=== PATIENT | female | born 1970 | race Caucasian/White ===

== ENCOUNTER 2018-08-16 19:17 | Emergency (ER) | END 2018-08-17 00:14 | disposition home or self-care (01) ==

== ENCOUNTER 2019-02-09 11:21 | Emergency (ER) | payer SELFPAY ==
[~2019-02-09] VITALS: Wt 59.1 kg
[~2019-02-09 11:21] MED LIST: ACET500C5 PO; IBUP-1542 PO
[2019-02-09] MEDS ORDERED: SOD CHLORIDE 0.9% 1,000 ML IV STA (11:37)
[2019-02-09] MEDS: METOCLOPRAMIDE 10 MG INJ IV STA ×2 (12:26→12:33)
[2019-02-09] MEDS: DIPHENHYDRAMINE 50 MG INJ IV STA ×2 (12:26→12:33)
[2019-02-09] MEDS: HYDROmorphONE 1 MG/ML SYG IV STA ×2 (12:27→12:33)
[2019-02-09] MEDS: NICARDipine HCL 30 MG CAPSULE PO ONE ×2 (12:27→12:34)
--- NOTE | 2019-02-09 12:59 | ERD ---
ER Documentation Chief Complaint Chief Complaint PT BIB AMBULANCE WITH C/O WEAKNESS X4 DAYS HPI This is a 48-year-old female who says that both of her legs have been tingling for the past 4 days and then she was on the bus prior to arrival and she was supposed to get off it her stop but she was unable to stand and walk at that time. She was brought in by ambulance for this reason. She states she had a headache for the past 4 days as well in the frontal region but now is getting better she states. She has no weakness in her arms but now she says her arms are tingling bilaterally but more specifically her hands bilaterally. She says her chin is also tingling. She has no weakness in the face. She says she had the exact same symptoms happened 5 months ago but she did not seek any medical attention. Patient is a bit tangential when trying to get a history from her. ROS All systems reviewed and are negative except as per history of present illness. Medications Home Meds Active Scripts Acetaminophen* (Tylophen*) 500 Mg Capsule, 1 CAP PO Q6H PRN for PAIN AND OR E LEVATED TEMP, #20 CAP Prov:GRISELDAILABANCHRISTOPHERAR F 08/16/18 Ibuprofen* (Motrin*) 600 Mg Tab, 600 MG PO Q6H PRN for PAIN AND OR ELEVATED TEMP, #30 TAB Prov:CHRISTOPHER PINOAR F 08/16/18 Allergies Allergies: Coded Allergies: Penicillins (Verified Allergy, Unknown, RASH, 04/09/15) PMhx/Soc History of Surgery: Yes (3 C-Sections) Anesthesia Reaction: No Hx Neurological Disorder: No Hx Respiratory Disorders: No Hx Cardiac Disorders: No Hx Psychiatric Problems: No Hx Miscellaneous Medical Probl: Yes (ANEMIA) Hx Alcohol Use: No Hx Substance Use: No Hx Tobacco Use: No Smoking Status: Former smoker FmHx Family History: No coronary disease Physical Exam Vitals Vital Signs Date Temp Pulse Resp B/P (MAP) Pulse Ox O2 O2 Flow FiO2 Time Delivery Rate 02/09/19 99.1 76 16 179/112 99 11:35 (134) Physical Exam Const: Well-developed, well-nourished Head: Atraumatic, normocephalic Eyes: Normal Conjunctiva, PERRLA, EOMI, normal sclera, no nystagmus ENT: Normal External Ears, Nose and Mouth, moist mucus membranes. Neck: Full range of motion. No meningismus, no lymphadenopathy. Resp: Clear to auscultation bilaterally, no wheezing, rhonchi, rales Cardio: Regular rate and rhythm, no murmurs, S1 S2 present Abd: Soft, non tender x 4, non distended. Normal bowel sounds, no guarding or rebound, no pulsitile abdominal masses or bruits Skin: No petechiae or rashes, no ecchymosis , no maculopapular rash Back: No midline or flank tenderness Ext: No cyanosis, or edema, FROM x 4, normal inspection, neurovascularly intact x 4 Neur: Awake and alert, strength 4 out of 5 bilateral legs 5 out of 5 bilateral upper extremities, subjective decreased sensation to all 4 extremities,, cerebellum intact Psych: Tangential Result Diagram: 02/09/19 1135 02/09/19 1135 Results 24 hrs Laboratory Tests Test 02/09/19 11:35 White Blood Count 6.7 10^3/ul Red Blood Count 4.71 10^6/ul Hemoglobin 12.1 g/dl Hematocrit 38.5 % Mean Corpuscular Volume 81.7 fl Mean Corpuscular Hemoglobin 25.7 pg Mean Corpuscular Hemoglobin Concent 31.4 g/dl Red Cell Distribution Width 15.2 % Platelet Count 271 10^3/UL Mean Platelet Volume 10.3 fl Immature Granulocytes % 0.400 % Neutrophils % 56.7 % Lymphocytes % 34.0 % Monocytes % 6.1 % Eosinophils % 2.1 % Basophils % 0.7 % Nucleated Red Blood Cells % 0.0 /100WBC Immature Granulocytes # 0.030 10^3/ul Neutrophils # 3.8 10^3/ul Lymphocytes # 2.3 10^3/ul Monocytes # 0.4 10^3/ul Eosinophils # 0.1 10^3/ul Basophils # 0.1 10^3/ul Nucleated Red Blood Cells # 0.0 10^3/ul Prothrombin Time 12.3 Sec Prothrombin Time Ratio 1.0 INR International Normalized Ratio 0.90 Activated Partial Thromboplast Time 28.3 Sec Sodium Level 143 mmol/L Potassium Level 3.6 mmol/L Chloride Level 107 mmol/L Carbon Dioxide Level 27 mmol/L Anion Gap 9 Blood Urea Nitrogen 9 mg/dl Creatinine 0.50 mg/dl Est Glomerular Filtrat Rate mL/min > 60 mL/min Glucose Level 110 mg/dl Calcium Level 10.1 mg/dl Troponin I < 0.012 ng/ml Current Medications Medications Dose Sig/Tereza Start Time Status Last (Trade) Ordered Route PRN Stop Time Admin Dose Reason Admin Sodium 1,000 ml @ Q1H STAT 02/09/19 DC 02/09/19 Chloride 1,000 mls/hr IV 11:37 12:26 02/09/19 12:36 10 mg ONCE STAT 02/09/19 DC Metoclopramid IV 11:37 e HCl 02/09/19 11:39 (Reglan) 1 mg ONCE STAT 02/09/19 DC Hydromorphone IV 11:37 HCl 02/09/19 11:39 (Dilaudid) 25 mg ONCE STAT 02/09/19 DC Diphenhydrami IV 11:37 ne HCl 02/09/19 11:39 (Benadryl) Nicardipine 30 mg ONCE ONCE 02/09/19 DC HCl PO 12:00 (Cardene) 02/09/19 12:01 Procedures/MDM MR #: [id number] DOS: 02/09/19 1137 Ordering MD: NISHANT MERCHANT DO Location: E/R Room/Bed: PROCEDURE: CT brain without contrast CLINICAL INDICATION: Headaches, bilateral leg weakness TECHNIQUE: CT of the brain without contrast was performed on a multidetector CT scanner, with multiplanar reformats. One or more of the following dose reduction techniques were used: Automated exposure control, adjustment in mA and / or kV according to patient size, use of iterative reconstructive technique. CTDIvol = 39 mGy; DLP = 634 mGy-cm. DICOM images are available. COMPARISON: None available FINDINGS: No acute intracranial hemorrhage is identified. No extra-axial fluid collection is seen. There is no mass effect. No midline shift is identified. The ventricles and sulci are within normal limits for size and configuration. The density of the brain is unremarkable. Miller-white junctions are preserved. Calvarium and skull base are intact. Mastoid air cells and imaged paranasal sinuses grossly clear. IMPRESSION: No evidence of acute intracranial pathology. RPTAT: VV .Demond Bass MD, Date Time Electronically viewed and signed by .Demond Bass MD, on 02/09/2019 12:24 .O/ CC: SHONDANISHANT Orlando DO [id number] EKG: Rate/Rhythm: Normal Sinus Rhythm,NL intervals QRS, ST, QT: NORMAL MT, QRS, QT] Impression: NORMAL EKG Patient is refusing all medications in the ED The patient was reevaluated with a public service administrator and she says now she feels better. She says that she can walk now. She was standing in the room when I came in the room when she was walking around. She also walked to the bathroom without any difficulty. She said the numbness in her chin is gone the numbness in her arms is gone that her legs are almost back to normal. She was hypertensive when she came in this might be why she was symptomatic or it psychogenic. I reviewed with her hypertension warnings and she said she will not take any medication for this. I told her she must she can have a stroke heart attack or renal failure or other hypertensive complication. I will prescribe her some Norvasc to go home with. Clinically she is better. Departure Diagnosis: Primary Impression: Paresthesias Additional Impression: Hypertension Hypertension type: unspecified Qualified Codes: I10 - Essential (primary) hypertension Condition: Stable SHONDANISHANT DO Feb 09, 2019 12:59
[2019-02-09] MEDS ORDERED: AMLO-218 PO (13:55)
[2019-02-09 14:15] VITALS: BP 161/103; PULSE 62; RESP 16
== END 2019-02-09 14:23 | disposition home or self-care (01) ==
LOC: E/R 11:21
DX: R20.2 Paresthesia of skin (principal); R40.2142 Coma scale, eyes open, spontaneous, at arrival to emergency department; R40.2362 Coma scale, best motor response, obeys commands, at arrival to emergency department; R40.2252 Coma scale, best verbal response, oriented, at arrival to emergency department; I10 Essential (primary) hypertension; Z87.891 Personal history of nicotine dependence
CPT/HCPCS: 36415; 70450; 71045; 80048; 84484; 85025; 85610; 85730; 93005; 99285; J7030; J1170; J1200; J2765